=== PATIENT | female | born 1995 | race Hispanic/Latino ===

== ENCOUNTER 2019-06-21 10:58 | Emergency (ER) | payer SELFPAY ==
[~2019-06-21 10:58] MED LIST: Iopamidol 370 76% 100 ML VIAL ONE
[2019-06-21] MEDS ORDERED: Ondansetron PF 4 MG/2 ML Vial ONE (11:47)
[2019-06-21 11:50] LABS: Bilirubin Small (Negative); Blood, Urine Moderate (Negative); Glucose, Urine (Dipstick) Negative (Negative); Hemoglobin 12.7 g/dL (12.0-16.0); Leukocyte Negative (Negative); Mean Corpuscular HGB CONC 33.7 g/dL (32.0-36.0); Mean Corpuscular Hemoglobin 27.5 pg (27.0-31.0); Mean Corpuscular Volume 81.8 fL (78.0-98.0); Nitrite Negative (Negative); Platelet Count 223 thou/uL (130-400); Protein, Urine (Dipstick) 100 mg/dL (Neg-Trace); RBC Distribution Width 13.2 % (11.5-14.5); White Blood Cell (WBC) Count 12.8 thou/uL (4.8-10.8)
[2019-06-21 11:52] LABS: Clarity Slightly Cloudy (Clear)
[2019-06-21 11:56] LABS: Bacteria/HPF 1+ HPF (None Seen)
[2019-06-21 11:59] LABS: Eosinophils 1 % (0-10); Lymphocytes 2 % (21-51); MDiff Complete? YES; Monocytes 2 % (0-10); Neutrophil 95 % (42-75); Platelet Morphology Comment Appears Adequate
[2019-06-21 12:00] LABS: Anion Gap 16 mmol/L (10-20); BUN (Urea Nitrogen) 7 mg/dL (7.0-18.7); Calc. Creatinine Clearance 0 mL/min (70-130); Calcium 9.2 mg/dL (7.8-10.44); Carbon Dioxide 21 mmol/L (22-29); Chloride 100 mmol/L (98-107); Estimated GFR-MDRD Greater than 90; Glucose 99 mg/dL (70-105); Potassium 3.1 mmol/L (3.5-5.1); Sodium 134 mmol/L (136-145)
[2019-06-21 13:14] LABS: Pregnancy Test - Urine (BHCG) Negative (Negative); Pregu Control Background? CLEAR/WHITE (CLR/WHITE); Pregu Control Bar Appear? YES (CONTROL BAR); Specific Gravity 1.025 (1.002-1.036)
--- NOTE | 2019-06-21 13:31 | CT ---
EXAM: Abdomen and pelvic CT scan with contrast: HISTORY: Dysuria and frequency, pain, concern for urinary tract infection COMPARISON: None FINDINGS: The visualized lung bases are clear. Liver: Unremarkable. Gallbladder:Unremarkable. Pancreas:Unremarkable Spleen:Unremarkable. Adrenal glands:Unremarkable. Kidneys:No renal calculus or acute obstruction. Some patchy abnormal low-attenuation changes within the left kidney having the appearance of pyelonep hritis. Slight fullness of the left upper renal collecting system and ureter with some mild perirenal stranding also consistent with acute pyelonephritis. No evidence for bowel obstruction. No CT evidence for acute appendicitis. The urinary bladder appears unremarkable. Incidental 2.4 cm diameter left ovarian cyst. Trace fluid in the pelvis. No abscess, adenopathy, or abnormal fluid collection within the abdomen or pelvis. IMPRESSION: Evidence for left-sided acute pyelonephritis
== END 2019-06-21 15:37 | disposition home or self-care (01) ==
LOC: SCSER 10:58
DX: N12 Tubulo-interstitial nephritis, not specified as acute or chronic (principal)
CPT/HCPCS: 74177; 80048; 81003; 81015; 81025; 85025; 87077; 87086; 87186; 96361; 96365; 96375; J2405; Q9967